=== PATIENT | female | born 1950 | race Caucasian/White ===

== ENCOUNTER 2016-10-06 12:48 | Emergency (ER) | payer OTHER ==
[~2016-10-06 12:48] MED LIST: AMOXICILLIN500 M1 PO; AMOXICILLIN875 MG PO; ASPIRIN81 M2 PO; ATENOLOL PO; B 12; BACTRIM DS TABL1 TAB PO; BENTYL20 MG PO; CERTAGEN PO; COLACE50 MG/5 ML PO; DOXY 100100 MG PO; ENABLEX15 MG PO; FEOSOL PO; LEVAQUIN PO; LORTAB 7.5-5001 TAB PO; MEDROL PO; METFORMIN PO; MOTRIN20 MG/ML PO; NEURONTIN300 MG PO; NORVASC PO; OXYCODONE-APAP1 EAC5 PO; PANTOPRAZOLE SO40 MG PO; PERCOCET; PERCOCET 10/3251 TAB PO; PERCOCET PO; PERCOCET10 PO; PHENERGAN W/CO120 ML PO; PROTONIX PO; ROBITUSSIN A-C S5 ML PO; SENNA S TABLET1 TAB PO; SKELAXIN PO; STOOL SOFTENER50 MG; VICODIN 5/500 T1 TAB PO; VITAMIN D50000 UNIT PO; ZOLOFT PO; ZYRTEC PO
[2016-10-06] MEDS ORDERED: FLONASE 0.05% N16 G1 (13:01)
== END 2016-10-06 14:17 | disposition home or self-care (01) ==
LOC: SED 12:48
DX: K04.7 Periapical abscess without sinus (principal); I10 Essential (primary) hypertension; Z87.891 Personal history of nicotine dependence; Z79.899 Other long term (current) drug therapy
CPT/HCPCS: 96372; 99283; J0696